=== PATIENT | male | born 1950 | race Caucasian/White ===

== ENCOUNTER 2020-07-16 13:32 | Emergency (ER) | payer MEDICARE, OTHER ==
--- NOTE | 2020-07-16 13:54 | ED.PDOC ---
History of Present Illness - General Time Seen by Provider: 07/16/20 13:49 - History of Present Illness Initial Comments: 70 yo M PMH HTN HL BPH got right hip replacement surgery 8 days ago, presents to ED zacarias in place unable to see Dr. Helton for removal. Denies fever cough sob recent travel or contact with covid19. Denies fever chills nausea vomiting diarrhea chest pain sob diaphoresis. No change in diet rest or bowel zacarias and leg bag in place with clear yellow urine. Denies drinking or smoking admits FH DM denies FH HTN has PMD Dr. Mc for follow up. No other c/o today. PPE worn-N95 surgical mask with attached face shield over N95 goggles gloves and face shield over that Allergies/Adverse Reactions: Allergies NO KNOWN ALLERGY Allergy (Verified 07/16/20 14:12) Home Medications: Ambulatory Orders Acetaminophen [Tylenol] 650 mg PO Q6H PRN #30 tab 07/16/20 Amoxicillin & Pot Clavulanate [Augmentin Tab] 875 mg PO BID 10 Days #20 tab 07/16/20 Ascorbic Acid [Vitamin C] 500 mg PO 07/16/20 Aspirin [Aspirin EC] 81 mg PO 07/16/20 Review of Systems - Review of Systems Constitutional: States: see HPI EENTM: States: see HPI Respiratory: States: see HPI Cardiology: States: see HPI Gastrointestinal/Abdominal: States: see HPI Genitourinary: States: see HPI Musculoskeletal: States: see HPI Skin: States: see HPI Neurological: States: see HPI Endocrine: States: see HPI All other Systems: Reviewed and Negative Family Medical History - Family History Mother Family History: Unknown Physical Exam - Physical Exam General Appearance: No apparent distress Eye Exam: bilateral normal Ears, Nose, Throat: normal ENT inspection Neck: non-tender, full range of motion Respiratory: no respiratory distress Cardiovascular/Chest: regular rate, rhythm Gastrointestinal/Abdominal: non tender, soft Rectal Exam: deferred Back Exam: normal inspection Extremity: normal range of motion, non-tender Neurologic: no motor/sensory deficits Skin Exam: normal color Progress - Progress Progress: 07/16/20 13:55 A/P-Zacarias [facility]- call urology to ensure no contra indications to zacarias removal ensure patient can void ua to r/o UTI then d/c home 09/18/20 14:[address] [facility] who states place patient on empiric antibiotic remove zacarias and strong return to ED precautions if cannot void or pain develops. Pt. has sister staying with him will not be home alone and understands these instructions Departure - Departure Clinical Impression: Zacarias catheter problem Qualifiers: Encounter type: initial encounter Qualified Code(s): T83.9XXA - Unspecified complication of genitourinary prosthetic device, implant and graft, initial encounter Time of Disposition: 14:45 Disposition: Discharge to Home or Self Care Condition: Good Referrals: LEYLA CONLEY MD [Referring] - 1-2 Days Prescriptions: Amoxicillin & Pot Clavulanate [Augmentin Tab] 875 mg PO BID 10 Days #20 tab Acetaminophen [Tylenol] 650 mg PO Q6H PRN #30 tab PRN Reason: Pain Home Medications: Ambulatory Orders Acetaminophen [Tylenol] 650 mg PO Q6H PRN #30 tab 07/16/20 Amoxicillin & Pot Clavulanate [Augmentin Tab] 875 mg PO BID 10 Days #20 tab 07/16/20 Ascorbic Acid [Vitamin C] 500 mg PO 07/16/20 Aspirin [Aspirin EC] 81 mg PO 07/16/20
[2020-07-16 15:28] VITALS: BP 121/77; TEMP 97.5; O2SAT 98
== END 2020-07-16 15:00 | disposition home or self-care (01) ==
LOC: ER 13:32
DX: T83.9XXA Unspecified complication of genitourinary prosthetic device, implant and graft, initial encounter (principal); Z96.641 Presence of right artificial hip joint; Z79.82 Long term (current) use of aspirin; Z79.899 Other long term (current) drug therapy; Y84.6 Urinary catheterization as the cause of abnormal reaction of the patient, or of later complication, without mention of misadventure at the time of the procedure